=== PATIENT | female | born 1955 ===

== ENCOUNTER 2018-08-29 11:13 | Emergency (ER) | payer BC ==
--- NOTE | 2018-08-29 12:50 | ED PDOC ---
HPI: General Adult Time Seen by Provider: 08/29/18 11:59 Chief Complaint (Nursing): Chest Pain Chief Complaint (Provider): Elevated blood pressure, chest pain History Per: Patient History/Exam Limitations: no limitations Onset/Duration Of Symptoms: Days Have you had recent travel within the past 21 days to any of the following countries: [place], [place], [place] or [place]?: No Additional History Per: Patient Additional Complaint(s): 63yo female, with history of hypertension, reports she recently arrived from [place] on a flight 2 days ago; patient states during the flight, she checked her blood pressure and noted it was elevated and also states she felt dizzy at that time. Patient reports her symptoms returned this morning and the blood pressure was elevated with a systolic reading of 180. Patient took a dose of Edarbyclor, which her PMD told her to take if her blood pressure "spikes." Patient states she also took 1 dose of sub-lingual nitroglycerin after which her chest pain resolved. Patient states she taked 25mg of Atenelol daily and has had a stress test, an echocardiogram, and a carotid doppler, all within the past 18 months. Patient states "my heart is very healthy and I recently saw my wheel alignment technician." She denies any chest pain at present and also denies any shortness of breath or leg pain. Patient denies any history of DVT as well. No additional complaints. Past Medical History Reviewed: Historical Data, Nursing Documentation, Vital Signs Vital Signs: Last Vital Signs Temp 98 F 08/29/18 11:26 Pulse 78 08/29/18 11:26 Resp 20 08/29/18 11:26 BP 135/76 08/29/18 11:26 Pulse Ox 97 08/29/18 11:26 - Medical History PMH: HTN - Surgical History Surgical History: No Surg Hx - Family History Family History: States: No Known Family Hx - Social History Current smoker - smoking cessation education provided: No Ex-Smoker (has not smoked in the last 12 months): No Alcohol: None Drugs: Denies - Home Medications Home Medications: Ambulatory Orders Medication Instructions Recorded cloNIDine [Catapres] 0.1 mg PO Q8 PRN #3 tab 08/29/18 - Allergies Allergies/Adverse Reactions: Allergies Allergy/AdvReac Type Severity Reaction Status Date / Time No Known Allergies Allergy Verified 11/12/18 11:29 Review of Systems ROS Statement: Except As Marked, All Systems Reviewed And Found Negative Cardiovascular: Positive for: Chest Pain Respiratory: Negative for: Cough, Shortness of Breath Musculoskeletal: Negative for: Leg Pain Neurological: Positive for: Dizziness. Negative for: Headache Physical Exam - Reviewed Nursing Documentation Reviewed: Yes Vital Signs Reviewed: Yes - Physical Exam Appears: Positive for: Non-toxic, No Acute Distress Head Exam: Positive for: ATRAUMATIC, NORMAL INSPECTION, NORMOCEPHALIC Skin: Positive for: Normal Color Eye Exam: Positive for: Normal appearance, EOMI, PERRL Neck: Positive for: Normal, Supple Cardiovascular/Chest: Positive for: Regular Rate, Rhythm Respiratory: Positive for: CNT, Normal Breath Sounds Gastrointestinal/Abdominal: Positive for: Normal Exam Back: Positive for: Normal Inspection Extremity: Positive for: Normal ROM. Negative for: Pedal Edema, Calf Tenderness Neurologic/Psych: Positive for: Alert, Oriented. Negative for: Motor/Sensory Deficits - Laboratory Results Result Diagrams: 08/29/18 12:35 08/29/18 12:35 - ECG ECG: Positive for: Interpreted By Me, Viewed By Me ECG Rhythm: Positive for: Sinus Rhythm. Negative for: ST/T Changes Interpretation Of ECG: Normal intervals Rate: 78 O2 Sat by Pulse Oximetry: 97 (RA) Pulse Ox Interpretation: Normal Medical Decision Making Medical Decision Making: Patient with improved blood pressure in the ER. Basic labs ordered. Patient pending reassessment. 1253 Repeat vitals indicates elevated blood pressure. Patient given Clonodine 1mg PO. Heart score 2 Patient offered but declined admission, risks of discharge were explained. She was symptom free and wants to go home to followup with her PMD in [place]. ----- LABS REVIEWED AND UNREMARKABLE PATIENT OFFERED HOSPITALIZATION BUT DECLINED, I ADVISED EXTREME CAUTION WITH ANY PLANNED AIR TRAVEL AND TO CHECK WITH HER DOCTOR FIRST FOR CLEARANCE TO FLY She requested several clonidine pills to use for hypertension if needs to fly emergently. Indications for medication discussed at length. Rec ASA 81mg daily until sees PMD/ cardio. Scribe Attestation: Documented by India Fleming, acting as a scribe for Jono Castillo DO. Provider Scribe Attestation: All medical record entries made by the Scribe were at my direction and personally dictated by me. I have reviewed the chart and agree that the record accurately reflects my personal performance of the history, physical exam, medical decision making, and the department course for this patient. I have also personally directed, reviewed, and agree with the discharge instructions and disposition. Disposition - Clinical Impression Clinical Impression: Chest pain, Elevated blood pressure reading - Patient ED Disposition Is Patient to be Admitted: No Counseled Patient/Family Regarding: Studies Performed, Diagnosis, Need For Followup - Disposition Disposition: Routine/Home Disposition Time: 14:27 Condition: STABLE Additional Instructions: See your doctor as soon as possible for further testing. AVOID AIR TRAVEL IF YOU ARE HAVING CHEST PAIN OR BLOOD PRESSURE >170 (TOP NUMBER). RETURN TO ER FOR ANY CONCERN, NEW OR WORSENING SYMPTOMS. RECOMMEND ASPIRIN 81MG DAILY UNTIL YOU SEE YOUR DOCTOR. USE CLONIDINE 0.1MG X1 EVERY 8 HOURS IF BLOOD PRESSURE >180 (TOP NUMBER). Prescriptions: cloNIDine [Catapres] 0.1 mg PO Q8 PRN #3 tab PRN Reason: Other Instructions: Hypotension (ED), Hypertension (ED), High Blood Pressure in Adults, Chest Pain Forms: [employer] (Citizen Of [place])
[2018-08-29 12:51] LABS: BASO % 0.2 % (0.0-2.0); EOS % 0.8 % (0.0-4.0); HEMOGLOBIN 13.7 g/dL (12.0-16.0); LYMPH # 1.9 K/uL (1.0-4.3); MEAN CELL VOLUME 88.1 fl (81.0-99.0); MEAN CORPUSCULAR HGB CONC 32.9 g/dL (33.0-37.0); MEAN PLATELET VOLUME 8.5 fl (7.2-11.7); MONO # 0.3 K/uL (0.0-0.8); MONO % 5.3 % (0.0-10.0); NEUT # 3.8 K/uL (1.8-7.0); NEUT % 62.7 % (50.0-75.0); NRBC % 0.4 % (0.0-0.0); RBC 4.71 Mil/uL (3.80-5.20); RED CELL DISTRIBUTION WIDTH 13.2 % (11.5-14.5)
[2018-08-29 12:53] LABS: SQUAMOUS EPITHIAL < 1 /hpf (0-5); URINE BILIRUBIN NEGATIVE (NEGATIVE); URINE BLOOD NEGATIVE (NEGATIVE); URINE CLARITY CLEAR (Clear); URINE COLOR COLORLESS (YELLOW); URINE GLUCOSE (UA) NEG (Normal); URINE LEUKOCYTE ESTERASE NEG Leu/uL (Negative); URINE PROTEIN NEGATIVE (NEGATIVE); URINE UROBILINOGEN 0.2-1.0 mg/dL (0.2-1.0)
[2018-08-29 12:55] LABS: PROTHROMBIN TIME 11.2 Seconds (9.8-13.1)
[2018-08-29 12:56] LABS: ALB/GLOB RATIO 1.3 (1.0-2.1); ALBUMIN 4.1 g/dL (3.5-5.0); ALT/SGPT 25 U/L (9-52); AST/SGOT 22 U/L (14-36); BLOOD UREA NITROGEN 12 mg/dl (7-17); CALCIUM 9.7 mg/dL (8.4-10.2); GFR NON-AFRICAN AMERICAN > 60
[2018-08-29 12:57] LABS: PARTIAL THROMBOPLASTIN TIME 30.6 Seconds (25.6-37.1)
[2018-08-29 13:07] LABS: B-TYPE NATRIURETIC PEPTIDE 90.3 pg/ml (0-900)
[2018-08-29 14:26] VITALS: BP 120/76; RESP 16; TEMP 98.1
[2018-08-29 14:27] VITALS: PULSE 78; O2SAT 97
--- NOTE | 2018-08-29 15:20 | RAD ---
Date of service: 08/29/2018 HISTORY: Chest pain COMPARISON: No prior. FINDINGS: LUNGS: No active pulmonary disease. PLEURA: No significant pleural effusion identified, no pneumothorax apparent. CARDIOVASCULAR: No atherosclerotic calcification present No radiographic findings to suggest acute or significant cardiovascular disease. OSSEOUS STRUCTURES: No significant abnormalities. VISUALIZED UPPER ABDOMEN: Normal. OTHER FINDINGS: None. IMPRESSION: No active disease.
--- NOTE | 2018-08-29 17:18 | CARD ---
APPROVED REPORT Date of service: 08/29/2018 EKG Measurement Heart [id number] <Conclusion> Normal sinus rhythm Normal ECG
== END 2018-08-29 14:35 | disposition home or self-care (01) ==
LOC: H.ER 11:13
DX: R07.9 Chest pain, unspecified (principal); I10 Essential (primary) hypertension; Z87.891 Personal history of nicotine dependence; Z79.899 Other long term (current) drug therapy